=== PATIENT | female | born 1965 | race Caucasian/White ===

== ENCOUNTER → 2025-02-12 11:34 | Outpatient (CLI) | payer OTHER, SELFPAY ==
--- NOTE | 2025-02-12 11:37 | DI.RAD.S_ITS ---
PROCEDURE: XR CERVICAL SPINE 3V INDICATIONS: Evaluate for cervical spondylosis TECHNIQUE: 3 views of the cervical spine were acquired. COMPARISON: None. FINDINGS: Moderate degenerative changes of the cervical spine with disc space narrowing, osteophytes, uncovertebral and facet hypertrophic changes most notably at C4-5, C5-6, C6-7. Mild straightening of the normal cervical lordosis with mild dextroscoliosis some of which may be artifact from positioning or related to muscle spasm or degenerative changes. No radiographic evidence of fracture, subluxation or abnormal prevertebral soft tissue swelling. IMPRESSION: Moderate degenerative changes as discussed above. If symptoms persist or worsen, or there is high clinical suspicion of cervical abnormality, MRI could be performed. Dictated by: Raf Stoll M.D. on 02/12/2025 at 12:31 Approved by: Raf Stoll M.D. on 02/12/2025 at 12:32
== END ==
PROVIDERS: PCP Family Medicine; Referring Provider Chiropractor; Visit Provider Chiropractor
DX: G44.229 Chronic tension-type headache, not intractable (principal); M54.2 Cervicalgia
CPT/HCPCS: 72040

== ENCOUNTER → 2025-03-06 11:48 | Outpatient (CLI) | payer OTHER, SELFPAY ==
--- NOTE | 2025-03-06 11:50 | DI.RAD.S_ITS ---
PROCEDURE: XR DEXA AXIAL SKELETON INDICATIONS: osteopenia COMPARISON: None. FINDINGS: Lumbar Spine: Bone mineral density 0.897 g/cm2, T score -1.1. Left Femoral Neck: Bone mineral density 0.656 g/cm2, T score -1.7. Left Hip: Bone mineral density 0.792 g/cm2, T score -1.2. Fracture Risk Calculation (when applicable): 10-year fracture risk of a major osteoporotic fracture 8.5 percent and of a hip fracture 0.9 percent. (T score greater or equal to -1.0 to: NORMAL) (T score from -1.1 to -2.4: OSTEOPENIA) (T score less than or equal to -2.5: OSTEOPOROSIS) IMPRESSION: Osteopenia--- recommend repeat DEXA in 2-3 years for reassessment. Follow-up guidelines as follows: Osteoporosis: Consider a repeat DEXA and Vertebral Fracture Assessment (VFA) exam in 2 years or sooner if medically necessary, to reassess this patient's status. Osteopenia: Consider a repeat DEXA in 2-3 years to reassess this patient's status, or if there is a new clinical indication. Normal: Consider a repeat DEXA in 5 years or sooner, or if there is a new clinical indication. All treatment decisions require clinical judgment and consideration of individual patient factors, including patient preferences, comorbidities, previous drug use, risk factors not captured in the FRAX model (e.g., frailty, falls, vitamin D deficiency, increased bone turnover, interval significant decline in bone density ) and possible under- or over-estimation of fracture risk by FRAX. In addition, the [employer] Guide recommends that FDA-approved medical therapies be considered in postmenopausal women and men age >= 50 years with a: * Hip or vertebral (clinical or morphometric) fracture * T-score of <=-2.5 at the spine or hip * Ten-year fracture probability by FRAX of >= 3% for hip fracture or >=20% for major osteoporotic fracture. Dictated by: Vidal Arita M.D. on 03/06/2025 at 18:13 Approved by: Vidal Arita M.D. on 03/12/2025 at 20:03
== END ==
PROVIDERS: PCP Family Medicine; Referring Provider Family Medicine; Visit Provider Family Medicine
DX: M85.89 Other specified disorders of bone density and structure, multiple sites (principal)
CPT/HCPCS: 77080